=== PATIENT | male | born 1990 | race Two or more races ===

== ENCOUNTER 2018-10-17 22:28 | Emergency (ER) | payer OTHER ==
[~2018-10-17] VITALS: Ht 185.4 cm; Wt 81.6 kg
--- NOTE | 2018-10-17 22:50 | NUR ---
ED Nurse Note: Pt ambulated to ED from work where he fell, pt slipped and landed on both hands and knees stating most of the impact was on the L knee, reports 7/10 pain. VSS
[2018-10-17] MEDS ORDERED: IBUPROFEN600 MG ORAL (23:00)
--- NOTE | 2018-10-17 23:01 | Emergency Room Report ---
History of Present Illness General Chief Complaint: Lower Extremity Injury Source: Patient Present Illness [facility] This is a 28-year-old male with no past medical history. He presents with chief complaint of a fall at work with left knee pain and right shoulder pain. He works in catering. He slipped on a wet floor and fell onto his left knee. He try to break his fall and somehow hurt his right shoulder blade area. Denied it is had. Worse with walking. Better with rest. No nausea no vomiting. No fever chills but denies any other complaint. Allergies: Coded Allergies: No Known Allergies (Unverified , 10/17/18) Patient History Past Medical History: see triage record, old chart reviewed Past Surgical History: none Pertinent Family History: none Social History: Denies: smoking Immunizations: other Reviewed Nursing Documentation: PMH: Agreed; PSxH: Agreed Nursing Documentation-PMH Past Medical History: No Stated History Review of Systems Eye: Denies: eye pain, blurred vision ENT: Denies: ear pain, nose congestion, throat swelling Respiratory: Denies: cough, shortness of breath Cardiovascular: Denies: chest pain, palpitations Gastrointestinal: Denies: abdominal pain, diarrhea, nausea, vomiting Musculoskeletal: Reports: joint pain; Denies: back pain Skin: Denies: rash Neurological: Denies: headache, numbness Endocrine: Denies: increased thirst, increased urine Hematologic/Lymphatic: Denies: easy bruising All Other Systems: negative except mentioned in HPI Physical Exam Vital Signs Date Time Temp Pulse Resp B/P (MAP) Pulse Ox O2 Delivery O2 Flow Rate FiO2 10/17/18 22:40 98.4 56 15 113/55 (74) 96 Room Air Vitals normal Sp02 EP Interpretation: reviewed, normal General Appearance: well appearing, no apparent distress, alert Head: normocephalic, atraumatic Eyes: bilateral eye PERRL, bilateral eye EOMI ENT: hearing grossly normal, normal pharynx Neck: full range of motion, supple, no meningismus Respiratory: chest non-tender, lungs clear, normal breath sounds Cardiovascular #1: regular rate, rhythm, no murmur Gastrointestinal: normal bowel sounds, non tender, no mass, no organomegaly, no bruit, non-distended Musculoskeletal: back normal, gait/station normal, normal range of motion, other - Right shoulder: No deformity. Full range of motion. Tenderness to the scapular area. Left knee: No deformity. Tenderness medially. Knee is stable. Sensation normal. Psychiatric: mood/affect normal Procedures Splinting Splinting : Consent: Verbal Pre-Made Type: SAPNA wrap Pre-Proc Neuro Vasc Exam: normal Post-Proc Neuro Vasc Exam: normal Patient Tolerated: Well Complications: None Medical Decision Making Diagnostic Impression: Primary Impression: Left knee sprain Qualified Codes: S83.412A - Sprain of medial collateral ligament of left knee , initial encounter Additional Impression: Sprain of shoulder, right Qualified Codes: S43.401A - Unspecified sprain of right shoulder joint, initial encounter ER Course Patient presents with soft tissue injury from fall. No fracture dislocation. Will discharge home. Other X-Ray Diagnostic Results Other X-Ray Diagnostic Results #1: X-Ray ordered: X-rays of left knee # of Views/Limited Vs Complete: 4 View Indication: Pain EP Interpretation: Yes Interpretation: no dislocation, no soft tissue swelling, no fractures Impression: No acute disease Electronically Signed by: Tony Cervantes MD Other X-Ray Diagnostic Results #2: X-Ray ordered: Xrays right shoulder # of Views/Limited Vs Complete: 3 View Indication: Pain EP Interpretation: Yes Interpretation: no dislocation, no soft tissue swelling, no fractures Impression: No acute disease Electronically Signed by: Tony Cervantes MD Last Vital Signs Date Time Temp Pulse Resp B/P (MAP) Pulse Ox O2 Delivery O2 Flow Rate FiO2 10/17/18 22:40 98.4 56 15 113/55 (74) 96 Room Air Status: improved Disposition: HOME, SELF-CARE Condition: Stable Scripts Ibuprofen* (MOTRIN*) 600 Mg Tablet 600 MG ORAL THREE TIMES A DAY, #30 TAB 0 Refills Prov: Tony Cervantes MD 10/17/18 Patient Instructions: Knee Sprain Additional Instructions: Ice pack to the area. Use crutches as needed. Follow-up with Workmen's [employer]. doctor within 2 days. Return if symptoms worsen. Tony Cervantes MD Oct 17, 2018 23:01
[2018-10-17 23:15] VITALS: BP 113/55
--- NOTE | 2018-10-17 23:15 | NUR ---
ER DISCHARGE NOTE: Patient is cleared to be discharged per ERMD, pt is aox4, on room air, with stable vital signs. pt was given dc and prescription instructions, pt was able to verbalize understanding, pt id band removed. pt is able to ambulate with seady gait. pt took all belongings.
--- NOTE | 2018-10-18 12:42 | Diagnostic Imaging Report ---
Indication: Right shoulder pain COMPARISON: None Findings: 3 views of the right shoulder were obtained. No acute fractures, malalignment, erosions or periostitis are identified. Soft tissues are unremarkable. Impression: Negative for acute injury
--- NOTE | 2018-10-18 12:42 | Diagnostic Imaging Report ---
INDICATION: Knee Pain COMPARISON: None 3 views of the left knee were obtained. FINDINGS: No acute fracture, malalignment, or joint effusion are identified. Impression: Negative for acute injury
== END 2018-10-17 23:15 | disposition home or self-care (01) ==
LOC: EMR 23:00
DX: S83.412A Sprain of medial collateral ligament of left knee, initial encounter (principal); S43.401A Unspecified sprain of right shoulder joint, initial encounter; W01.0XXA Fall on same level from slipping, tripping and stumbling without subsequent striking against object, initial encounter; Y92.89 Other specified places as the place of occurrence of the external cause; Y99.0 Civilian activity done for income or pay
CPT/HCPCS: 99284